=== PATIENT | female | born 1980 | race African-American/Black ===

== ENCOUNTER 2017-04-19 21:56 | Emergency (ER) | payer OTHER ==
[2017-04-19] MEDS ORDERED: Dexamethasone 10 MG/ML VIAL ONE (22:26)
== END 2017-04-19 22:33 | disposition home or self-care (01) ==
LOC: SCSER 21:56
DX: B34.9 Viral infection, unspecified (principal); R59.0 Localized enlarged lymph nodes
CPT/HCPCS: 99283; J1100

== ENCOUNTER 2020-02-28 08:59 | Outpatient (CLI) | payer OTHER ==
--- NOTE | 2020-02-28 10:31 | MRI ---
MRI RIGHT WRIST: DATE: 02/28/2020. PROVIDED CLINICAL HISTORY: Wrist pain status post injury. FINDINGS: The dorsal extensor and volar flexor tendons demonstrate an intact MR appearance. Alignment appears anatomic. Joint spaces appear preserved. No regional joint effusion is evident. The TFC complex, scapholunate ligament, and lunotriquetral ligament are not optimally evaluated in th e absence of joint distention, but demonstrate no definite abnormality. No focal concerning regional marrow or muscular signal abnormality is evident. The courses of the regional major neurovascular structures appear unremarkable. IMPRESSION: No evidence for internal derangement. POS: [id number]
== END 2020-02-28 09:00 | disposition home or self-care (01) ==
LOC: BICMRI 08:59
PROVIDERS: ATTEND Family Medicine
DX: S66.911D Strain of unspecified muscle, fascia and tendon at wrist and hand level, right hand, subsequent encounter (principal); M77.8 Other enthesopathies, not elsewhere classified

== ENCOUNTER 2020-06-26 22:23 | Emergency (ER) | payer OTHER ==
[2020-06-26] MEDS ORDERED: Dexamethasone 10 MG/ML VIAL ONE (22:50)
[2020-06-26] MEDS ORDERED: Aspirin Chewable 81 MG TAB ONE (22:50)
[2020-06-26 23:35] LABS: Hemoglobin 12.8 g/dL (12.0-16.0); Mean Corpuscular HGB CONC 32.6 g/dL (32.0-36.0); Mean Corpuscular Hemoglobin 25.8 pg (27.0-31.0); Mean Corpuscular Volume 79.1 fL (78.0-98.0); Mean Platelet Volume 10.6 fL (7.4-10.4); Platelet Count 167 thou/uL (130-400); RBC Distribution Width 14.1 % (11.5-14.5); Red Blood Cell (RBC) Count 4.94 mill/uL (4.20-5.40); White Blood Cell (WBC) Count 4.7 thou/uL (4.8-10.8)
[2020-06-26 23:52] LABS: Band 4 % (5-11); Lymphocytes 17 % (21-51); MDiff Complete? YES; Monocytes 6 % (0-10); Neutrophil 72 % (42-75); Platelet Morphology Comment Appears Adequate; RBC Morphology Normal; Reactive Lymphocytes 1 % (0-10)
[2020-06-26 23:54] LABS: ALT (SGPT) 15 U/L (8-55); AST (SGOT) 24 U/L (5-34); Albumin 4.4 g/dL (3.5-5.0); Alkaline Phosphatase 85 U/L (40-110); Anion Gap 17 mmol/L (10-20); BUN (Urea Nitrogen) 7 mg/dL (7.0-18.7); Bilirubin, Total 0.3 mg/dL (0.2-1.2); CK (CPK) 374 U/L (29-168); Calc. Creatinine Clearance 0 mL/min (70-130); Calcium 8.9 mg/dL (7.8-10.44); Carbon Dioxide 22 mmol/L (22-29); Chloride 103 mmol/L (98-107); Glucose 97 mg/dL (70-105); Lipase 21 U/L (8-78); Potassium 3.3 mmol/L (3.5-5.1); Protein, Total 8.4 g/dL (6.0-8.3); Sodium 139 mmol/L (136-145)
== END 2020-06-27 00:50 | disposition home or self-care (01) ==
LOC: ERS 22:23
DX: U07.1 COVID-19 (principal); J12.82 Pneumonia due to coronavirus disease 2019
CPT/HCPCS: 36415; 71045; 80053; 82550; 83690; 83880; 84484; 85025; 85379; 87040; 93005; 96374; J1100

== ENCOUNTER 2021-07-05 22:43 | Emergency (ER) | payer BC | END 2021-07-06 00:54 | disposition home or self-care (01) | LOC: ERS 22:43 | DX: S29.012A Strain of muscle and tendon of back wall of thorax, initial encounter (principal); X50.0XXA Overexertion from strenuous movement or load, initial encounter | CPT/HCPCS: 99282 ==

== ENCOUNTER 2022-11-11 11:05 | Outpatient (CLI) | payer BC | END 2022-11-11 11:06 | disposition home or self-care (01) | LOC: BICMAMMO 11:05 | PROVIDERS: ATTEND Student in an Organized Health Care Education/Training Program | DX: Z12.31 Encounter for screening mammogram for malignant neoplasm of breast (principal) | CPT/HCPCS: 77063; 77067 ==

== ENCOUNTER 2023-05-09 07:03 | Emergency (ER) | payer BC ==
[2023-05-09] MEDS ORDERED: Ibuprofen 200 MG TAB ONE (07:40)
== END 2023-05-09 08:34 | disposition home or self-care (01) ==
LOC: ERS 07:03
DX: S63.612A Unspecified sprain of right middle finger, initial encounter (principal); E78.5 Hyperlipidemia, unspecified; X58.XXXA Exposure to other specified factors, initial encounter; Z79.899 Other long term (current) drug therapy

== ENCOUNTER 2024-05-17 16:27 | Outpatient (CLI) | payer BC | END 2024-05-17 16:28 | disposition home or self-care (01) | LOC: RAD 16:27 | PROVIDERS: ATTEND Internal Medicine | DX: R05.9 Cough, unspecified (principal) | CPT/HCPCS: 71046 ==

== ENCOUNTER 2025-03-24 08:16 | Outpatient (CLI) | payer BC ==
[2025-03-24 09:16] LABS: #Basophils 0.07 10x3/uL (0.0-0.2); #Eosinophils 0.23 10x3/uL (0.0-0.7); #Monocytes 0.72 10x3/uL (0.11-0.59); #Neutrophils 3.32 10x3/uL (1.40-6.50); %Basophils 1.0 % (0.0-1.0); %Eosinophils 3.4 % (0.0-10.0); %Lymphocytes 35.4 % (21.0-51.0); %Monocytes 10.7 % (0.0-10.0); %Neutrophils 49.4 % (42.0-75.0); Hematocrit 44.3 % (36.0-47.0); Hemoglobin 13.9 g/dL (12.0-16.0); Mean Corpuscular Hemoglobin 25.6 pg (27.0-31.0); Mean Corpuscular Volume 81.4 fL (78.0-98.0); Platelet Count 226 10x3/uL (130-400); Red Blood Cell (RBC) Count 5.44 mill/uL (4.20-5.40); White Blood Cell (WBC) Count 6.73 10x3/uL (4.8-10.8)
== END 2025-03-24 08:17 | disposition home or self-care (01) ==
LOC: LABBT 08:16
PROVIDERS: ATTEND Orthopaedic Surgery Hand Surgery
DX: Z01.818 Encounter for other preprocedural examination (principal); M65.4 Radial styloid tenosynovitis [de Quervain]
CPT/HCPCS: 85025; 93005; 93010

== ENCOUNTER 2025-04-01 05:52 | Day surgery (SDC) | payer BC ==
[2025-03-24 08:44] VITALS: BMI 48.2
[2025-04-01] MEDS ORDERED: fentaNYL PF 100 MCG/2 ML SYRINGE ONE (06:34)
[2025-04-01] MEDS ORDERED: Lidocaine 1% PF 5 ML VIAL ONE (06:34)
[2025-04-01] MEDS ORDERED: PROPOFOL 20 ML ONE (06:34)
[2025-04-01] MEDS ORDERED: Bacitracin Zinc Ointment 30 gm TUBE ONE (06:55)
[2025-04-01] MEDS ORDERED: Rocuronium Bromide 10 MG/ML (10ML VIAL) ONE (06:59)
[2025-04-01] MEDS ORDERED: Vancomycin 1 GM/200 ML (FROZEN) BAG ONE (07:19)
[2025-04-01] MEDS ORDERED: Ketorolac Tromethamine 30 MG (1 mL) VIAL ONE ×2 (07:42→08:35)
[2025-04-01] MEDS ORDERED: Ondansetron PF 4 MG/2 ML Vial ONE (07:52)
[2025-04-01] MEDS ORDERED: SUGAMMADEX SODIUM 200 MG/2 ML VIAL ONE (08:15)
== END 2025-04-01 09:50 | disposition home or self-care (01) ==
LOC: SDC 05:52
PROVIDERS: ATTEND Orthopaedic Surgery Hand Surgery
PROC: 0LB60ZZ Excision of Left Lower Arm and Wrist Tendon, Open Approach (ICD-10-PCS; principal; 2025-04-01)
DX: M65.4 Radial styloid tenosynovitis [de Quervain] (principal); D76.1 Hemophagocytic lymphohistiocytosis; E78.5 Hyperlipidemia, unspecified; Z91.040 Latex allergy status; Z88.0 Allergy status to penicillin; Z79.899 Other long term (current) drug therapy
CPT/HCPCS: 36416; 88305; J0665; J0702; J1100; J1885; J2405; J2704; J3373